=== PATIENT | female | born 1995 | race Caucasian/White ===

== ENCOUNTER 2017-07-29 14:39 | Emergency (ER) | payer MEDICAID, OTHER ==
[2017-07-29 14:50] VITALS: BP 133/77
--- NOTE | 2017-07-29 15:47 | EDPHY ---
H & P Time Seen by Provider: 07/29/17 15:21 HPI/ROS: CHIEF COMPLAINT: Bump on sternum HISTORY OF PRESENT ILLNESS: Patient presents with 4 days of swelling on her central sternum between her breasts. There is a little blackhead there. No fever or chills. REVIEW OF SYSTEMS: No drainage PAST MEDICAL HISTORY: Negative for diabetes, now immunocompromised Social history: Here with her mom General Appearance: Alert and conversant, cooperative. Fluctuance 1 cm lump center sternum between her breast without surrounding erythema. There is a black head inferiorly. No crepitus. Emergency Department course/MDM: Procedure: Abscess drainage. The patient's abscess was located on the central sternum as above. Risks, benefits, alternatives discussed with the patient and consent obtained. Standard sterile technique was used with 1% local lidocaine anesthesia. The abscess was incised with a #11 blade and cottage cheese type sebaceous cyst drainage was expressed. The patient tolerated the procedure well. The procedure was performed by myself. Does not require antibiotics, more likely sebaceous cyst than abscess. Smoking Status: Never smoked Constitutional: Initial Vital Signs Temperature (C) 36.9 C 07/29/17 14:48 Heart Rate 62 07/29/17 14:48 Respiratory Rate 16 07/29/17 14:48 Blood Pressure 133/77 H 07/29/17 14:48 O2 Sat (%) 97 07/29/17 14:48 O2 Delivery Mode Room Air Allergies/Adverse Reactions: No Known Allergies Allergy (Unverified 07/29/17 14:48) Home Medications: Medication Instructions Recorded NK [No Known Home Meds] 07/29/17 MDM/Departure - Depart Disposition: Home, Routine, Self-Care Clinical Impression: Sebaceous cyst Condition: Good Instructions: Cyst (ED), Acute Wounds (ED) Referrals: Xavier King MD [Primary Care Provider] - As per Instructions
== END 2017-07-29 15:50 | disposition home or self-care (01) ==
PROC: 0H95XZZ Drainage of Chest Skin, External Approach (ICD-10-PCS; principal; 2017-07-29)
DX: L72.3 Sebaceous cyst (principal)